=== PATIENT | female | born 1965 | race African-American/Black ===

== ENCOUNTER → 2016-04-23 | Outpatient (CLI) | payer OTHER ==
[2016-04-23 07:46] LABS: BASO # 0.1 x10^3/uL (0.0-0.2); BASO % 1 % (0-3); EOS % 2 % (0-3); HEMATOCRIT 40.8 % (36.0-47.0); HEMOGLOBIN 13.2 g/dL (12.0-15.5); LYMPH % 24 % (24-48); MEAN CORPUSCULAR HEMOGLOBIN 30 pg (25-35); MEAN CORPUSCULAR HGB CONC 32 g/dL (31-37); MEAN CORPUSCULAR VOLUME 94 fL (79-100); MONO % 13 % (0-9); NEUT % 59 % (31-73); PLATELET COUNT 215 x10^3/uL (140-400); RED BLOOD COUNT 4.37 x10^6/uL (3.50-5.40); RED CELL DISTRIBUTION WIDTH 14.2 % (11.5-14.5); WHITE BLOOD COUNT 4.3 x10^3/uL (4.0-11.0)
[2016-04-23 07:55] LABS: ALBUMIN 3.7 g/dL (3.4-5.0); ALBUMIN/GLOBULIN RATIO 0.7 (1.0-1.7); CALCIUM 9.2 mg/dL (8.5-10.1); CREATININE 0.8 mg/dL (0.6-1.0); GFR 92.6; TOTAL BILIRUBIN 0.4 mg/dL (0.2-1.0); TOTAL PROTEIN 8.8 g/dL (6.4-8.2)
[2016-04-23 08:46] LABS: CHOLESTEROL/HDL RATIO 3.2
[2016-04-23 13:23] LABS: FSH 109.1 mIU/mL (.); LUTEINIZING HORMONE 60.2 mIU/mL (.)
== END | disposition home or self-care (01) ==
LOC: LAB 07:03
PROVIDERS: ATTEND Internal Medicine
DX: N91.1 Secondary amenorrhea (principal)
CPT/HCPCS: 36415; 80053; 80061; 83001; 83002; 83036; 83690; 84443; 85027

== ENCOUNTER → 2016-04-28 | Outpatient (CLI) | payer OTHER ==
--- NOTE | 2016-04-28 14:52 | RAD ---
DATE: 04/28/2016. EXAM: DIGITAL SCREEN BILAT W/CAD HISTORY: Routine screening. COMPARISON: 04/25/2015. This study was interpreted with the benefit of Computerized Aided Detection (CAD). FINDINGS: Both breasts are heterogeneously dense, limiting the sensitivity of mammography. No dominant mass or malignant appearing microcalcifications are seen. The axillae are unremarkable. IMPRESSION: No mammographic features suspicious for malignancy. BI-RADS CATEGORY: 1 NEGATIVE RECOMMENDED FOLLOW-UP: 12M 12 MONTH FOLLOW-UP PQRS compliance statement: Patient information was entered into a reminder system with a target due date for the next mammogram. Mammography is a sensitive method for finding small breast cancers, but it does not detect them all and is not a substitute for careful clinical examination. A negative mammogram does not negate a clinically suspicious finding and should not result in delay in biopsying a clinically suspicious abnormality. "Our facility is accredited by the [employer] Mammography [employer]."
== END | disposition home or self-care (01) ==
LOC: MAMMO 14:01
PROVIDERS: ATTEND Internal Medicine
DX: Z12.31 Encounter for screening mammogram for malignant neoplasm of breast (principal)
CPT/HCPCS: G0202; 77067

== ENCOUNTER 2016-04-30 22:01 | Emergency (ER) | payer OTHER ==
[2016-04-30 22:33] VITALS: BP 135/89
[2016-04-30] MEDS ORDERED: PHEN-318 PO (22:37)
[2016-04-30] MEDS ORDERED: CIPR500T94 PO (22:37)
--- NOTE | 2016-04-30 22:37 | PHYS DOC ---
Adult General Chief Complaint Chief Complaint: PAIN ON URINATION [facility] HPI Patient is a 50 year old female who presents with dysuria that began today. Patient also states she noted blood on the toilet paper when she wiped herself. Patient denies any flank pain, denies any nausea vomiting or fever. Denies any back pain or abdominal pain. Denies any chance she is . She's had a tubal ligation. Review of Systems Review of Systems Constitutional: Denies fever or chills [] Eyes: Denies change in visual acuity, redness, or eye pain [] HENT: Denies nasal congestion or sore throat [] Respiratory: Denies cough or shortness of breath [] Cardiovascular: No additional information not addressed in HPI [] GI: Denies abdominal pain, nausea, vomiting, bloody stools or diarrhea [] : Denies dysuria or hematuria [] Musculoskeletal: Denies back pain or joint pain [] Integument: Denies rash or skin lesions [] Neurologic: Denies headache, focal weakness or sensory changes [] Endocrine: Denies polyuria or polydipsia [] Current Medications Current Medications Current Medications Medications (Trade) Dose Ordered Sig/Manda Start Time Stop Time Status Last Admin Dose Admin Ciprofloxacin (Cipro) 500 mg 1X ONCE 04/30/16 22:45 04/30/16 22:46 Phenazopyridine HCl (Pyridium) 200 mg 1X ONCE 04/30/16 22:45 04/30/16 22:46 Allergies Allergies Allergies Coded Allergies Type Severity Reaction Last Updated Verified Sulfa (Sulfonamide Antibiotics) Allergy Intermediate RASH 04/30/16 Yes Physical Exam Physical Exam Constitutional: Well developed, well nourished, no acute distress, non-toxic appearance. [] HENT: Normocephalic, atraumatic, bilateral external ears normal, oropharynx moist, no oral exudates, nose normal. [] Eyes: PERRLA, EOMI, conjunctiva normal, no discharge. [] Neck: Normal range of motion, no tenderness, supple, no stridor. [] Cardiovascular:Heart rate regular rhythm, no murmur [] Lungs & Thorax: Bilateral breath sounds clear to auscultation [] Abdomen: Bowel sounds normal, soft, no tenderness, no masses, no pulsatile masses. [] Skin: Warm, dry, no erythema, no rash. [] Back: No tenderness, no CVA tenderness. [] Extremities: No tenderness, no cyanosis, no clubbing, ROM intact, no edema. [] Neurologic: Alert and oriented X 3, normal motor function, normal sensory function, no focal deficits noted. [] Psychologic: Affect normal, judgement normal, mood normal. [] Current Patient Data Vital Signs Vital Signs Date Time Temp Pulse Resp B/P Pulse Ox O2 Delivery O2 Flow Rate FiO2 04/30/16 22:33 98.0 96 20 98 Room Air 98.0 EKG EKG [] Radiology/Procedures Radiology/Procedures [] Course & Med Decision Making Course & Med Decision Making Pertinent Labs and Imaging studies reviewed. (See chart for details) Patient is in the UTI with UTI symptoms. UA shows patient is positive for UTI. Discharged with Cipro for 7 days. Pyridium as needed for pain. Follow-up with primary care doctor in one week. Provided return precautions. Discharged in stable condition. Dragon Disclaimer Dragon Disclaimer This electronic medical record was generated, in whole or in part, using a voice recognition dictation system. Departure Departure Impression: Primary Impression: Urinary tract infection Disposition: HOME, SELF-CARE Condition: STABLE Referrals: RICARDO LEACH MD (PCP) Follow-up with your own doctor in one week Patient Instructions: Urinary Tract Infection Additional Instructions: You were seen for urinary tract infection. Please complete your antibiotics. Take the prescribed medicines for pain as needed. Come back to the emergency room if symptoms worsen. Follow-up with your own doctor in one week. Push fluids. Scripts Phenazopyridine Hcl (Pyridium)200 Mg Vittwt454 Mg PO TID #9 TAB Prov:RODRIGO APARICIO APRN 04/30/16 Ciprofloxacin Hcl (Cipro)500 Mg Tablet1 Tab PO BID #13 TAB Prov:RODRIGO APARICIO APRN 04/30/16 Problem Qualifiers Primary Impression: Urinary tract infection Urinary tract infection type: acute cystitis Hematuria presence: with hematuria Qualified Code: N30.01 - Acute cystitis with hematuria RODRIGO APARICIO APRN Apr 30, 2016 22:37
[2016-04-30] MEDS ORDERED: CIPROFLOXACIN HCL 250 MG TABLET PO ONE (22:45)
[2016-04-30] MEDS ORDERED: PHENAZOPYRIDINE 200 MG TABLET. PO ONE (22:45)
[2016-04-30 22:48] LABS: BILIRUBIN,URINE NEGATIVE (NEG); GLUCOSE,URINE NEGATIVE (NEG); NITRITE,URINE POSITIVE (NEG); UROBILINOGEN,URINE 0.2 mg/dL (0.2 mg/dL)
[2016-04-30 22:54] LABS: PROTEIN,URINE 30 mg/dL (NEG-TRACE)
[2016-04-30 22:55] LABS: BACTERIA,URINE MOD /HPF (0-FEW); RBC,URINE 20-40 /HPF (0-2); SQUAMOUS EPITHELIAL CELL,UR FEW /LPF; WBC,URINE TNTC /HPF (0-4)
== END 2016-04-30 22:45 | disposition home or self-care (01) ==
LOC: ER 22:01
DX: N39.0 Urinary tract infection, site not specified (principal); Z88.2 Allergy status to sulfonamides
CPT/HCPCS: 81001; 99283

== ENCOUNTER → 2016-06-19 | Outpatient (CLI) | payer OTHER ==
[~2016-06-19] MED LIST: CEPH-264 PO; CIPR500T94 PO; PHEN-318 PO
[2016-06-22 16:15] LABS: ALPHA 1 0.2 g/dL (0.0-0.4); ALPHA 2 0.6 g/dL (0.4-1.0); BETA 1.1 g/dL (0.7-1.3); GAMMA 2.2 g/dL (0.4-1.8); M-SPIKE Not Observed g/dL (Not Observed)
== END | disposition home or self-care (01) ==
LOC: LAB 09:34
PROVIDERS: ATTEND Internal Medicine
DX: R77.8 Other specified abnormalities of plasma proteins (principal)
CPT/HCPCS: 36415; 84165; 86703

== ENCOUNTER 2016-06-21 07:05 | Emergency (ER) | payer OTHER ==
[~2016-06-21] VITALS: Ht 160 cm; Wt 77.1 kg
[~2016-06-21 07:05] MED LIST changes: -CEPH-264 PO
[2016-06-21 07:15] VITALS: BP 129/72
[2016-06-21 07:43] LABS: BILIRUBIN,URINE NEGATIVE (NEG); GLUCOSE,URINE NEGATIVE (NEG); NITRITE,URINE POSITIVE (NEG); PROTEIN,URINE NEGATIVE (NEG-TRACE)
[2016-06-21 08:04] LABS: BACTERIA,URINE MODERATE /HPF (0-FEW); RBC,URINE 0 /HPF (0-2); SQUAMOUS EPITHELIAL CELL,UR MOD /LPF
[2016-06-21] MEDS ORDERED: CEPHALEXIN 250 MG CAPSULE PO ONE (08:15)
[2016-06-21] MEDS ORDERED: CEPH-264 PO (08:18)
--- NOTE | 2016-06-21 08:18 | PHYS DOC ---
Past Medical History Past Medical History: No Pertinent History Past Surgical History: Cholecystectomy, , Tubal ligation Additional Information: Nonsmoker Alcohol Use: None Drug Use: None Adult General Chief Complaint Chief Complaint: PAIN ON URINATION [facility] HPI Patient is a 50 year old female who presents with suprapubic pain and urinary frequency starting yesterday. She also reports urinary urgency. She denies dysuria, hematuria, fever, nausea, or vomiting. She had a UTI approximately 2 months ago treated with ciprofloxacin. Her PCP is Dr. Omer Cool. Review of Systems Review of Systems Constitutional: Denies fever or chills. [] GI: Denies nausea, vomiting, bloody stools or diarrhea. Reports suprapubic pain : Denies dysuria, hematuria. Reports urinary frequency and urgency. Musculoskeletal: Denies back pain or joint pain. [] Integument: Denies rash or skin lesions. [] Neurologic: Denies headache, focal weakness or sensory changes. [] All systems reviewed and negative unless otherwise stated in the HPI. Allergies Allergies Allergies Coded Allergies Type Severity Reaction Last Updated Verified Sulfa (Sulfonamide Antibiotics) Allergy Intermediate RASH 04/30/16 Yes Physical Exam Physical Exam Constitutional: Well developed, well nourished, no acute distress, non-toxic appearance. [] HENT: Normocephalic, atraumatic, bilateral external ears normal, oropharynx moist, no oral exudates, nose normal. [] Eyes: PERRLA, EOMI, conjunctiva normal, no discharge. [] Neck: Normal range of motion, no tenderness, supple, no stridor. [] Cardiovascular:Heart rate regular rhythm, no murmur [] Lungs & Thorax: Bilateral breath sounds clear to auscultation [] Abdomen: Bowel sounds normal, soft, suprapubic tenderness, no masses, no pulsatile masses. [] Skin: Warm, dry, no erythema, no rash. [] Back: No tenderness, no CVA tenderness. [] Extremities: No tenderness, no cyanosis, no clubbing, ROM intact, no edema. [] Neurologic: Alert and oriented X 3, normal motor function, normal sensory function, no focal deficits noted. [] Psychologic: Affect normal, judgement normal, mood normal. [] Current Patient Data Vital Signs Vital Signs Date Time Temp Pulse Resp B/P Pulse Ox O2 Delivery O2 Flow Rate FiO2 06/21/16 07:15 97.5 90 18 97 Room Air 97.5 Lab Values Laboratory Tests Test 06/21/16 07:24 Urine Collection Type Unknown Urine Color [place] Urine Clarity Clear Urine pH 5.0 Urine Specific [place] 1.020 Urine Protein Negativemg/dL (NEG-TRACE) Urine Glucose (UA) Negativemg/dL (NEG) Urine Ketones (Stick) Tracemg/dL (NEG) Urine Blood Negative (NEG) Urine Nitrite Positive (NEG) Urine Bilirubin Negative (NEG) Urine Urobilinogen Dipstick 1.0mg/dL (0.2 mg/dL) Urine Leukocyte Esterase Small (NEG) Urine RBC 0/HPF (0-2) Urine WBC 5-10/HPF (0-4) Urine Squamous Epithelial Cells Mod/LPF Urine Bacteria Moderate/HPF (0-FEW) Urine Mucus Mod/LPF EKG EKG [] Radiology/Procedures Radiology/Procedures [] Course & Med Decision Making Course & Med Decision Making Pertinent Labs and Imaging studies reviewed. (See chart for details) [] Dragon Disclaimer Dragon Disclaimer This electronic medical record was generated, in whole or in part, using a voice recognition dictation system. Departure Departure Impression: Primary Impression: Urinary tract infection Disposition: HOME, SELF-CARE Condition: STABLE Referrals: OMER COOL MD (PCP) Patient Instructions: Urinary Tract Infection, [id number] Additional Instructions: Please complete all the prescribed antibiotics, even if you're feeling better. Please follow-up with your doctor for recheck of your urine after completion of the antibiotics. Return to the emergency department if you have any new or concerning symptoms. Scripts Cephalexin (Keflex)500 Mg Capsule1 Cap PO BID #14 CAP Prov:CHUCK HODGES 06/21/16 Problem Qualifiers Primary Impression: Urinary tract infection Urinary tract infection type: acute cystitis Hematuria presence: without hematuria Qualified Code: N30.00 - Acute cystitis without hematuria CHUCK HODGES Jun 21, 2016 08:18
== END 2016-06-21 08:30 | disposition home or self-care (01) ==
LOC: ER 07:05
DX: N30.00 Acute cystitis without hematuria (principal); Z90.49 Acquired absence of other specified parts of digestive tract; Z98.51 Tubal ligation status; Z88.2 Allergy status to sulfonamides
CPT/HCPCS: 81001; 87086; 99284

== ENCOUNTER → 2016-08-03 | Outpatient (CLI) | payer OTHER ==
[~2016-08-03] MED LIST changes: +CEPH-264 PO
[2016-08-03 14:11] LABS: BASO # 0.1 x10^3/uL (0.0-0.2); BASO % 1 % (0-3); EOS % 2 % (0-3); HEMATOCRIT 40.8 % (36.0-47.0); HEMOGLOBIN 13.6 g/dL (12.0-15.5); LYMPH # 1.6 x10^3/uL (1.0-4.8); LYMPH % 31 % (24-48); MEAN CORPUSCULAR HEMOGLOBIN 31 pg (25-35); MEAN CORPUSCULAR HGB CONC 33 g/dL (31-37); MEAN CORPUSCULAR VOLUME 92 fL (79-100); MONO % 11 % (0-9); NEUT % 55 % (31-73); PLATELET COUNT 214 x10^3/uL (140-400); RED BLOOD COUNT 4.42 x10^6/uL (3.50-5.40); RED CELL DISTRIBUTION WIDTH 14.4 % (11.5-14.5); WHITE BLOOD COUNT 5.1 x10^3/uL (4.0-11.0)
[2016-08-03 14:35] LABS: ALBUMIN 3.6 g/dL (3.4-5.0); ALBUMIN/GLOBULIN RATIO 0.7 (1.0-1.7); CREATININE 0.8 mg/dL (0.6-1.0); GFR 92.6; POTASSIUM 3.5 mmol/L (3.5-5.1); TOTAL BILIRUBIN 0.3 mg/dL (0.2-1.0); TOTAL PROTEIN 8.6 g/dL (6.4-8.2)
[2016-08-06 07:32] LABS: ALPHA 1 0.2 g/dL (0.0-0.4); ALPHA 2 0.7 g/dL (0.4-1.0); BETA 1.2 g/dL (0.7-1.3); GAMMA 2.2 g/dL (0.4-1.8); M-SPIKE Not Observed g/dL (Not Observed)
[2016-08-07 10:25] LABS: IMMUNOGLOBULIN A 250 mg/dL (87-352); IMMUNOGLOBULIN G 2284 mg/dL (700-1600); IMMUNOGLOBULIN M 63 mg/dL (26-217)
== END | disposition home or self-care (01) ==
LOC: LAB 13:13
PROVIDERS: ATTEND Internal Medicine Hematology & Oncology
DX: D89.2 Hypergammaglobulinemia, unspecified (principal); R53.83 Other fatigue
CPT/HCPCS: 36415; 80053; 84165; 84443; 85027; 86334

== ENCOUNTER → 2016-08-07 | Outpatient (CLI) | payer OTHER ==
[~2016-08-07] MED LIST changes: +CONTRAST GIVEN MC PRN; +IOHEXOL 240 MG/ML 50ML VIAL. PO ONE; +IOHEXOL 300 MG/ML 75 ML VIAL IV ONE
--- NOTE | 2016-08-07 08:37 | RAD ---
Indication abnormal thyroid function tests. Grayscale imaging targeted to the thyroid was performed. No prior imaging of the thyroid is available. The right lobe measures 5 x 1.9 x 2.3 cm. The right lobe, generally, has a heterogeneous appearance. There is a hyperechoic subcentimeter, 6 mm, nodule in the right lobe. There is shadowing suggesting possible calcification associated with the nodule. The isthmus appears unremarkable. The left lobe of the thyroid has a heterogeneous appearance measuring approximately 4.6 x 1.6 x 2.3 cm. No discrete nodule is identified. IMPRESSION: 6 mm nodule in the right lobe of the thyroid.
--- NOTE | 2016-08-07 09:41 | RAD ---
Indication fatigue. Hyper gammaglobulin anemia. Axial images to the abdomen and pelvis were obtained. Both oral and IV contrast were administered. Approximately 75 cc of Omnipaque 300 was administered intravenously. No prior CT imaging of the abdomen or pelvis is available. The lung bases appear clear. The liver and spleen appear unremarkable. No adrenal or renal pathology is seen. The pancreas appears normal. There is no significant central or retroperitoneal adenopathy. A mass inflammatory process or acute finding in the abdomen is not seen. In the pelvis no focal mass or inflammatory process is seen. There is no significant adenopathy. IMPRESSION: No acute or significant finding seen in the abdomen or pelvis PQRS Compliance Statement: One or more of the following individualized dose reduction techniques were utilized for this examination: 1. Automated exposure control 2. Adjustment of the mA and/or kV according to patient size 3. Use of iterative reconstruction technique
== END | disposition home or self-care (01) ==
LOC: US 06:56
PROVIDERS: ATTEND Internal Medicine Hematology & Oncology
DX: E04.1 Nontoxic single thyroid nodule (principal); R53.83 Other fatigue; D89.2 Hypergammaglobulinemia, unspecified
CPT/HCPCS: 74177; 76536; Q9966; Q9967

== ENCOUNTER 2016-09-24 10:38 | Day surgery (SDC) | payer OTHER ==
[~2016-09-24] VITALS: Ht 160 cm; Wt 87.5 kg
[~2016-09-24 10:38] MED LIST changes: -CONTRAST GIVEN MC PRN; +FERRIC SUBSULFATE 8 ML SOL.W.APPL TP ONE; +HYDROmorphone 2 MG/ML VIAL IV PRN; -IOHEXOL 240 MG/ML 50ML VIAL. PO ONE; -IOHEXOL 300 MG/ML 75 ML VIAL IV ONE; +IV RINGERS,LACTATED 1000ML 1,000 ML IV SCH; +LIDOCAINE 1% 1 ML SYRINGE. ID PRN; +LIDOCAINE 1%/EPI 1:100,000 20 ML VIAL. ONE; +MORPHINE SULFATE 2 MG/ML DISP.SYRIN. IV PRN; +PROCHLORPERAZINE 10 MG/2 ML VIAL. IV PRN; +fentaNYL PF VIAL 100 MCG/2 ML VIAL IV PRN
[2016-09-24] MEDS ORDERED: PROPOFOL 20 ML IV ONE (11:49)
[2016-09-24] MEDS ORDERED: LIDOCAINE 2% PF Vial for OR 5 ML VIAL. ONE (11:49)
[2016-09-24] MEDS ORDERED: fentaNYL PF VIAL 100 MCG/2 ML VIAL ONE (11:50)
[2016-09-24] MEDS ORDERED: DEXAMETHASONE SOD PHOS 4 MG/ML VIAL ONE (12:04)
[2016-09-24] MEDS ORDERED: SCOPOLAMINE 1.5MG PATCH. TD SCH (12:04)
[2016-09-24] MEDS ORDERED: DEXAMETHASONE SOD PHOS 20 MG/5 ML VIAL. IV ONE (12:15)
[2016-09-24] MEDS ORDERED: ONDANSETRON PF 4 MG/2 ML VIAL. ONE (12:32)
[2016-09-24] MEDS ORDERED: SEVOFLURANE 16 TO 30 MINUTES. IH ONE (12:34)
[2016-09-24] MEDS ORDERED: FAMOTIDINE 20 MG/2 ML VIAL ONE (12:39)
[2016-09-24 12:42] LABS: NEG OBC UR NEG; POS OBC UR POS
--- NOTE | 2016-09-24 13:00 | DISCH ---
DISCHARGE INSTRUCTIONS Condition on Discharge Condition on Discharge: Stable Activity After Discharge Activity Instructions for Disc: Activity as tolerated Lifting Instructions after Dis: No heavy lifting Driving Instructions after Dis: Do not drive today Diet after Discharge Diet after Discharge: Regular Contacting the DRShukri after DC Call your doctor for: Concerns you may have Follow-Up Follow up with: Dr. Arzate in 2 weeks. NATE ARZATE Jr, MD Sep 24, 2016 13:00
--- NOTE | 2016-09-24 13:00 | PDOC ---
BRIEF OPERATIVE NOTE Pre-Op Diagnosis CRISTI 1 Post-Op Diagnosis Same Procedure Performed Cervical cone biopsy Surgeon Dr. Arzate Anesthesia Type: General Blood Loss Less than 5 ml Specimens Obtained cervical cone biopsy Findings CRISTI 1 Complications none Additional Remarks pt. NATE Heck Jr, MD Sep 24, 2016 13:00
[2016-09-24] MEDS ORDERED: OXYC-323 PO (13:27)
[2016-09-24 13:59] VITALS: BP 120/70
--- NOTE | 2016-09-24 18:30 | OP ---
DATE OF SURGERY: PREOPERATIVE DIAGNOSES: CRISTI 1. POSTOPERATIVE DIAGNOSES: CRISTI 1. PROCEDURE: Cervical cone biopsy. SURGEON: Nate Arzate MD ANESTHESIA: GETA. ESTIMATED BLOOD LOSS: 5 mL. COMPLICATIONS: None. FINDINGS: Cervical dysplasia, CRISTI 1 on colposcopic biopsy. SUMMARY: A 51-year-old female with CRISTI 1 on colposcopic biopsy requiring cervical cone biopsy. She was counseled on risks, benefits and expectations and voiced a clear understanding to proceed. DESCRIPTION OF PROCEDURE: The patient was taken to surgery suite and placed in dorsal lithotomy position. She was prepped with Betadine solution and draped in sterile fashion. After adequate anesthesia, weighted speculum and curved Joni placed vaginally and anterior lip of the cervix grasped with a single tooth tenaculum. 1% lidocaine with epinephrine was injected circumferentially around the cervix. ____ 2-0 Vicryl sutures placed at the 3 o'clock and 9 o'clock position for better stabilization cervix. Cervix cone biopsy was performed with the 45-degree blade removing the ____ portion of the anterior and posterior lip of the cervix. The remaining cervical canal was cauterized with Bovie cautery. Monsel solution was also applied for better hemostasis. The single tooth tenaculum, weighted speculum and curved Joni were removed. The patient tolerated the procedure well and was taken to recovery room in stable condition. Sponge and needle count correct x 3. NATE ARZATE MD DR: ROSITA/rosy JOB#: [id number] / [id number]
== END 2016-09-24 14:30 | disposition home or self-care (01) ==
LOC: SURG 10:38
PROVIDERS: ATTEND Obstetrics & Gynecology
DX: N87.0 Mild cervical dysplasia (principal); E78.00 Pure hypercholesterolemia, unspecified; E66.9 Obesity, unspecified; Z90.49 Acquired absence of other specified parts of digestive tract; Z98.51 Tubal ligation status; Z68.42 Body mass index [BMI] 45.0-49.9, adult; Z86.39 Personal history of other endocrine, nutritional and metabolic disease; Z72.89 Other problems related to lifestyle; Z88.2 Allergy status to sulfonamides
CPT/HCPCS: 57500; 81025; J0690; J1100; J2405; J2704; J3010; J3490; S0028

== ENCOUNTER → 2016-11-06 | Outpatient (CLI) | payer OTHER ==
[~2016-11-06] MED LIST changes: -FERRIC SUBSULFATE 8 ML SOL.W.APPL TP ONE; -HYDROmorphone 2 MG/ML VIAL IV PRN; -IV RINGERS,LACTATED 1000ML 1,000 ML IV SCH; -LIDOCAINE 1% 1 ML SYRINGE. ID PRN; -LIDOCAINE 1%/EPI 1:100,000 20 ML VIAL. ONE; -MORPHINE SULFATE 2 MG/ML DISP.SYRIN. IV PRN; +OXYC-323 PO; -PROCHLORPERAZINE 10 MG/2 ML VIAL. IV PRN; -fentaNYL PF VIAL 100 MCG/2 ML VIAL IV PRN
[2016-11-06 14:52] LABS: FREE T4 1.01 ng/dL (0.76-1.46)
== END | disposition home or self-care (01) ==
LOC: LAB 13:49
PROVIDERS: ATTEND Internal Medicine Endocrinology, Diabetes & Metabolism
DX: E04.1 Nontoxic single thyroid nodule (principal); R94.6 Abnormal results of thyroid function studies
CPT/HCPCS: 36415; 84439; 84443; 86376

== ENCOUNTER → 2017-01-07 | Outpatient (CLI) | payer OTHER ==
[2017-01-07 11:13] LABS: FREE T4 1.18 ng/dL (0.76-1.46)
== END | disposition home or self-care (01) ==
LOC: LAB 09:52
PROVIDERS: ATTEND Internal Medicine Endocrinology, Diabetes & Metabolism
DX: R94.6 Abnormal results of thyroid function studies (principal)
CPT/HCPCS: 36415; 84439; 84443

== ENCOUNTER → 2017-04-01 | Outpatient (CLI) | payer OTHER | END | disposition home or self-care (01) | LOC: US 13:00 | DX: E04.1 Nontoxic single thyroid nodule (principal) | CPT/HCPCS: 76536 ==

== ENCOUNTER → 2017-04-23 | Outpatient (CLI) | payer OTHER ==
[2017-04-23 07:15] LABS: ADD MAN DIFF? NO
[2017-04-23 07:41] LABS: BASO % 1 % (0-3); EOS # 0.1 x10^3/uL (0.0-0.7); EOS % 2 % (0-3); HEMATOCRIT 40.4 % (36.0-47.0); HEMOGLOBIN 13.3 g/dL (12.0-15.5); LYMPH # 1.1 x10^3/uL (1.0-4.8); LYMPH % 26 % (24-48); MEAN CORPUSCULAR HEMOGLOBIN 31 pg (25-35); MEAN CORPUSCULAR HGB CONC 33 g/dL (31-37); MEAN CORPUSCULAR VOLUME 94 fL (79-100); MONO # 0.6 x10^3/uL (0.0-1.1); MONO % 14 % (0-9); NEUT # 2.4 x10^3uL (1.8-7.7); NEUT % 57 % (31-73); PLATELET COUNT 223 x10^3/uL (140-400); RED BLOOD COUNT 4.32 x10^6/uL (3.50-5.40); RED CELL DISTRIBUTION WIDTH 14.1 % (11.5-14.5); WHITE BLOOD COUNT 4.3 x10^3/uL (4.0-11.0)
[2017-04-23 07:59] LABS: ALBUMIN 3.7 g/dL (3.4-5.0); ALBUMIN/GLOBULIN RATIO 0.8 (1.0-1.7); ALK PHOS 111 U/L (46-116); ALT (SGPT) 25 U/L (14-59); ANION GAP 9 (6-14); AST (SGOT) 17 U/L (15-37); BLOOD UREA NITROGEN 9 mg/dL (7-20); BUN/CREATININE RATIO 13 (6-20); CALCIUM 9.2 mg/dL (8.5-10.1); CARBON DIOXIDE 29 mmol/L (21-32); CHLORIDE 104 mmol/L (98-107); CHOLESTEROL 211 mg/dL (0-200); CHOLESTEROL/HDL RATIO 3.7; CREATININE 0.7 mg/dL (0.6-1.0); GFR 107.6; GLUCOSE 90 mg/dL (70-99); HDLC 57 mg/dL (40-60); LDLC 145 mg/dL (0-100); NON-HDL CHOLESTEROL 154 mg/dL (0-129); POTASSIUM 4.2 mmol/L (3.5-5.1); SODIUM 142 mmol/L (136-145); TOTAL BILIRUBIN 0.3 mg/dL (0.2-1.0); TOTAL PROTEIN 8.6 g/dL (6.4-8.2); TRIGLYCERIDES 47 mg/dL (0-150); VLDLC 9 mg/dL (0-40)
[2017-04-23 08:07] LABS: THYROID STIM HORMONE (TSH) 2.132 uIU/mL (0.358-3.74)
[2017-04-23 08:07] LABS: FREE T4 1.05 ng/dL (0.76-1.46)
== END | disposition home or self-care (01) ==
LOC: LAB 06:17
DX: Z13.220 Encounter for screening for lipoid disorders (principal); E04.1 Nontoxic single thyroid nodule; R77.9 Abnormality of plasma protein, unspecified
CPT/HCPCS: 36415; 80053; 80061; 84439; 84443; 85025

== ENCOUNTER → 2017-04-30 | Outpatient (CLI) | payer OTHER | END | disposition home or self-care (01) | LOC: MAMMO 08:36 | DX: Z12.31 Encounter for screening mammogram for malignant neoplasm of breast (principal) | CPT/HCPCS: 77067 ==

== ENCOUNTER → 2017-05-25 | Outpatient (CLI) | payer OTHER ==
[2017-05-26 01:15] LABS: HIV ANTIBODY Non Reactive (Non Reactive)
[2017-05-26 01:15] LABS: HCV ANTIBODY 0.2 s/co ratio (0.0-0.9)
[2017-05-26 03:15] LABS: RPR Non Reactive (Non Reactive)
== END | disposition home or self-care (01) ==
LOC: LAB 10:32
DX: Z77.21 Contact with and (suspected) exposure to potentially hazardous body fluids (principal)
CPT/HCPCS: 36415; 86593; 86703; 86803

== ENCOUNTER 2017-09-25 17:52 | Emergency (ER) | payer OTHER | END 2017-09-25 19:12 | disposition home or self-care (01) | LOC: ER 19:12 | DX: E03.9 Hypothyroidism, unspecified (principal); R59.1 Generalized enlarged lymph nodes; Z88.2 Allergy status to sulfonamides | CPT/HCPCS: 99283 ==

== ENCOUNTER → 2017-09-30 | Outpatient (CLI) | payer OTHER ==
[2017-09-30 12:35] LABS: FREE T4 1.11 ng/dL (0.76-1.46)
== END | disposition home or self-care (01) ==
LOC: LAB 09:50
DX: E04.9 Nontoxic goiter, unspecified (principal); E78.00 Pure hypercholesterolemia, unspecified
CPT/HCPCS: 36415; 84439; 84443

== ENCOUNTER → 2017-12-13 | Outpatient (CLI) | payer OTHER ==
[2017-09-29 08:16] VITALS: BP 111/74
[~2017-12-13] MED LIST changes: +AMOX875T PO; +PRED50TA PO
[2017-12-13 09:47] LABS: FREE T4 0.97 ng/dL (0.76-1.46); THYROID STIM HORMONE (TSH) 3.528 uIU/mL (0.358-3.74)
== END | disposition home or self-care (01) ==
LOC: LAB 06:54
PROVIDERS: ATTEND Family Medicine
DX: E04.9 Nontoxic goiter, unspecified (principal)
CPT/HCPCS: 36415; 84439; 84443; 86800

== ENCOUNTER → 2018-05-02 | Outpatient (CLI) | payer OTHER ==
[2017-09-29 08:16] VITALS: BP 111/74
[~2018-05-02] MED LIST changes: -OXYC-323 PO; +OXYC1TAB15 PO
--- NOTE | 2018-05-03 15:56 | RAD ---
DATE: 05/02/2018 EXAM: MAMMO ANTONI SCREENING BILATERAL HISTORY: Screening Mammogram COMPARISON: 04/30/2017, 04/28/2016, 04/26/2015 This study was interpreted with the benefit of Computerized Aided Detection (CAD). The breast parenchyma shows scattered fibroglandular densities. Breast parenchyma level B. FINDINGS: Bilateral digital 2-D and 3-D tomosynthesis CC and MLO views. Possible architectural distortion in the lateral left breast, posterior depth. No suspicious mass, calcification or architectural distortion in the right breast. IMPRESSION: Possible architectural distortion in the lateral left breast. Spot compression CC view, and possible ultrasound, is recommended for further evaluation. BI-RADS CATEGORY: 0 INCOMPLETE: NEEDS ADDITIONAL IMAGING EVALUATION AND/OR PRIOR MAMMOGRAMS FOR COMPARISON. RECOMMENDED FOLLOW-UP: ADD ADDITIONAL IMAGING PQRS compliance statement: Patient information was entered into a reminder system with a target due date for the next mammogram. Mammography is a sensitive method for finding small breast cancers, but it does not detect them all and is not a substitute for careful clinical examination. A negative mammogram does not negate a clinically suspicious finding and should not result in delay in biopsying a clinically suspicious abnormality. "Our facility is accredited by the [employer] Mammography Program."
== END | disposition home or self-care (01) ==
LOC: MAMMO 07:41
PROVIDERS: ATTEND Physician Assistant Medical
DX: Z12.31 Encounter for screening mammogram for malignant neoplasm of breast (principal)
CPT/HCPCS: 77063; 77067

== ENCOUNTER → 2018-05-04 | Outpatient (CLI) | payer OTHER ==
[2017-09-29 08:16] VITALS: BP 111/74
--- NOTE | 2018-05-04 13:49 | RAD ---
DATE: 05/04/2018 EXAM: DIGITAL DIAGNOSTIC LT HISTORY: Asymmetry in the lateral left breast COMPARISON: Screening mammogram 05/02/2018, 04/30/2017 Findings: Periprosthetic identified in the cephalic Digital 2-D spot compression left breast CC view and full field digital 2-D MLO view. The previously noted asymmetry is no longer visualized on the spot compression view and is consistent with mission artifact. IMPRESSION: Asymmetry the in the left breast is consistent with summation artifact. Patient will return to screening mammogram with a target date of April 2019. BI-RADS CATEGORY: 1 NEGATIVE RECOMMENDED FOLLOW-UP: 12M 12 MONTH FOLLOW-UP PQRS compliance statement: Patient information was entered into a reminder system with a target due date for the next mammogram. Mammography is a sensitive method for finding small breast cancers, but it does not detect them all and is not a substitute for careful clinical examination. A negative mammogram does not negate a clinically suspicious finding and should not result in delay in biopsying a clinically suspicious abnormality. "Our facility is accredited by the [employer] Mammography [employer]."
== END | disposition home or self-care (01) ==
LOC: MAMMO 13:15
PROVIDERS: ATTEND Physician Assistant Medical
DX: R92.8 Other abnormal and inconclusive findings on diagnostic imaging of breast (principal)
CPT/HCPCS: 77065

== ENCOUNTER → 2018-05-19 | Outpatient (CLI) | payer OTHER ==
[2017-09-29 08:16] VITALS: BP 111/74
[2018-05-19 08:00] LABS: BASO % 1 % (0-3); EOS # 0.1 x10^3/uL (0.0-0.7); EOS % 2 % (0-3); HEMATOCRIT 38.9 % (36.0-47.0); LYMPH % 24 % (24-48); MEAN CORPUSCULAR HEMOGLOBIN 31 pg (25-35); MEAN CORPUSCULAR HGB CONC 34 g/dL (31-37); MEAN CORPUSCULAR VOLUME 93 fL (79-100); MONO # 0.4 x10^3/uL (0.0-1.1); MONO % 10 % (0-9); NEUT # 2.5 x10^3uL (1.8-7.7); NEUT % 63 % (31-73); PLATELET COUNT 231 x10^3/uL (140-400); RED CELL DISTRIBUTION WIDTH 14.4 % (11.5-14.5)
[2018-05-19 08:05] LABS: ALBUMIN 3.7 g/dL (3.4-5.0); ALBUMIN/GLOBULIN RATIO 0.7 (1.0-1.7); CALCIUM 9.4 mg/dL (8.5-10.1); CREATININE 0.8 mg/dL (0.6-1.0); GFR 91.9; POTASSIUM 3.7 mmol/L (3.5-5.1); TOTAL BILIRUBIN 0.4 mg/dL (0.2-1.0); TOTAL PROTEIN 8.7 g/dL (6.4-8.2)
[2018-05-19 08:09] LABS: CHOLESTEROL/HDL RATIO 3.7
[2018-05-19 08:12] LABS: THYROID STIM HORMONE (TSH) 2.75 uIU/mL (0.358-3.74)
== END | disposition home or self-care (01) ==
LOC: LAB 05-17 12:56
PROVIDERS: ATTEND Physician Assistant Medical
DX: Z13.220 Encounter for screening for lipoid disorders (principal); E04.1 Nontoxic single thyroid nodule; R77.9 Abnormality of plasma protein, unspecified
CPT/HCPCS: 36415; 80053; 80061; 84439; 84443; 85025

== ENCOUNTER → 2018-06-15 | Outpatient (CLI) | payer OTHER ==
[2017-09-29 08:16] VITALS: BP 111/74
--- NOTE | 2018-06-15 14:49 | RAD ---
Thyroid ultrasound, 06/15/2018: History: Follow-up thyroid nodule The right lobe of the gland measures 4.9 x 1.9 x 1.6 cm while the left lobe of the gland measures 4.8 x 1.9 x 1.4 cm. The thyroid echo pattern is heterogeneous. There is a 6 mm smooth septated cyst in the lower pole of the left lobe of the gland. This was not only 04/01/2017 exam. There is a complex nodule in the lower pole of the right lobe of the gland which measures 8 mm in greatest dimension. It appears to have a cystic component as well as echogenic internal components with probable shadowing. This suggests partial calcification or calcific debris within a complicated cyst. It is wider than tall. No internal color flow is seen. It measured 6 x 4 x 7 mm on the 08/07/2017 exam compared to measurements of 8 x 6 x 8 mm on the current exam. It therefore appears to have increased slightly in size. IMPRESSION: 1. Slight interval increase in size of the small complex right thyroid nodule. 2. Small septated cyst in the left thyroid lobe. 3. Further sonographic surveillance is suggested.
== END | disposition home or self-care (01) ==
LOC: US 12:50
PROVIDERS: ATTEND Physician Assistant Medical
DX: E04.2 Nontoxic multinodular goiter (principal)
CPT/HCPCS: 76536

== ENCOUNTER → 2018-12-01 | Outpatient (CLI) | payer OTHER ==
[2017-09-29 08:16] VITALS: BP 111/74
[2018-12-01 08:56] LABS: BASO % 1 % (0-3); EOS # 0.1 x10^3/uL (0.0-0.7); EOS % 3 % (0-3); HEMOGLOBIN 13.4 g/dL (12.0-15.5); LYMPH # 1.2 x10^3/uL (1.0-4.8); LYMPH % 30 % (24-48); MEAN CORPUSCULAR HEMOGLOBIN 31 pg (25-35); MEAN CORPUSCULAR HGB CONC 34 g/dL (31-37); MEAN CORPUSCULAR VOLUME 91 fL (79-100); MONO # 0.5 x10^3/uL (0.0-1.1); MONO % 14 % (0-9); NEUT # 2.1 x10^3/uL (1.8-7.7); NEUT % 52 % (31-73); PLATELET COUNT 227 x10^3/uL (140-400); WHITE BLOOD COUNT 3.9 x10^3/uL (4.0-11.0)
[2018-12-01 09:07] LABS: ALBUMIN 3.7 g/dL (3.4-5.0); ALBUMIN/GLOBULIN RATIO 0.7 (1.0-1.7); CALCIUM 9.5 mg/dL (8.5-10.1); CREATININE 0.8 mg/dL (0.6-1.0); GFR 91.5; TOTAL BILIRUBIN 0.4 mg/dL (0.2-1.0); TOTAL PROTEIN 8.7 g/dL (6.4-8.2)
[2018-12-01 09:19] LABS: FREE T4 0.99 ng/dL (0.76-1.46); THYROID STIM HORMONE (TSH) 2.708 uIU/mL (0.358-3.74)
== END | disposition home or self-care (01) ==
LOC: LAB 08:08
PROVIDERS: ATTEND Physician Assistant Medical
DX: R77.9 Abnormality of plasma protein, unspecified (principal); E04.1 Nontoxic single thyroid nodule
CPT/HCPCS: 36415; 80053; 84439; 84443; 85025

== ENCOUNTER → 2018-12-21 | Outpatient (CLI) | payer OTHER ==
[2017-09-29 08:16] VITALS: BP 111/74
--- NOTE | 2018-12-22 09:26 | RAD ---
Examination: Ultrasound thyroid HISTORY: History of follow-up thyroid nodules. COMPARISON: 04/01/2017 FINDINGS: The right lobe of thyroid gland measures 4.9 x 1.8 x 1.4 cm. Left lobe of thyroid gland measures 4.6 x 2.0 x 1.3 cm. Mild heterogeneous appearance of the thyroid gland. Cystic thyroid nodules identified in the right and left lobes of thyroid gland measuring 1 cm on the right and 7 mm in the left lower thyroid gland containing echogenicity within could be cystic thyroid nodules or colloid cysts similar to prior exam. IMPRESSION: 1. Unchanged cystic thyroid nodules or colloid cysts. 2. Heterogeneous appearance of thyroid gland. Correlate for thyroiditis. Electronically signed by: Pratik Magallanes MD (12/22/2018 9:23 AM) [place] [id number]
== END | disposition home or self-care (01) ==
LOC: US 15:21
PROVIDERS: ATTEND Physician Assistant Medical
DX: E04.2 Nontoxic multinodular goiter (principal)
CPT/HCPCS: 76536

== ENCOUNTER → 2019-02-14 | Outpatient (CLI) | payer OTHER ==
[2017-09-29 08:16] VITALS: BP 111/74
[2019-02-14 07:55] LABS: CHOLESTEROL/HDL RATIO 3.7
== END | disposition home or self-care (01) ==
LOC: LAB 06:46
PROVIDERS: ATTEND Obstetrics & Gynecology
DX: Z01.419 Encounter for gynecological examination (general) (routine) without abnormal findings (principal); N76.0 Acute vaginitis; B96.89 Other specified bacterial agents as the cause of diseases classified elsewhere
CPT/HCPCS: 36415; 80061

== ENCOUNTER → 2019-05-16 | Outpatient (CLI) | payer OTHER ==
[2017-09-29 08:16] VITALS: BP 111/74
--- NOTE | 2019-05-16 15:16 | RAD ---
DATE: May 16, 2019 EXAM: MAMMO ANTONI SCREENING BILATERAL HISTORY: Screening study. COMPARISON: 2017 and 2018 This study was interpreted with the benefit of Computerized Aided Detection (CAD). 2-D digital mammographic views of both breasts were performed in the CC and MLO projections. 3-D digital tomosynthesis images of both breasts were performed in the CC and MLO projections and reviewed on a computer workstation. FINDINGS: Breast Density: HETERO The breast parenchyma is heterogenously dense, which could reduce sensitivity of mammography. Breast parenchyma level C.. There are no dominant suspicious masses, suspicious microcalcifications or evidence of architectural distortion. Lymph node within the upper outer quadrant of the left breast is stable. IMPRESSION: No mammographic indicators for malignancy. BI-RADS CATEGORY: 2 BENIGN FINDING RECOMMENDED FOLLOW-UP: 12M 12 MONTH FOLLOW-UP PQRS compliance statement: Patient information was entered into a reminder system with a target due date May 17, 2020 for the next mammogram. Mammography is a sensitive method for finding small breast cancers, but it does not detect them all and is not a substitute for careful clinical examination. A negative mammogram does not negate a clinically suspicious finding and should not result in delay in biopsying a clinically suspicious abnormality. "Our facility is accredited by the [employer] Mammography Program." The patient's breast density may affect the ability of mammography to detect breast cancer. There are 4 categories of breast density, A, B, C and D. Breast density A means that most of the breast tissue is replaced with adipose tissue and therefore is not dense. Breast density B means that the breast tissue is mildly dense and scattered. Breast density C means that the breast tissue is heterogeneously dense. Breast density D means that the breast tissue is very dense. Breast densities especially C and D may decrease the sensitivity of mammography to detect breast cancer. Therefore, the patient may benefit from 3-D breast mammography (3D breast tomography) as a part of their screening mammogram. Insurance may or may not pay for this additional imaging. The patient's breast density based on today's mammogram is category C.
== END | disposition home or self-care (01) ==
LOC: MAMMO 15:18
PROVIDERS: ATTEND Physician Assistant Medical
DX: Z12.31 Encounter for screening mammogram for malignant neoplasm of breast (principal); N64.89 Other specified disorders of breast
CPT/HCPCS: 77063; 77067

== ENCOUNTER 2019-11-27 07:57 | Emergency (ER) | payer OTHER ==
[~2019-11-27] VITALS: Ht 160 cm; Wt 88.3 kg
--- NOTE | 2019-11-27 08:39 | PHYS DOC ---
Past Medical History Past Medical History: Hypothyroid Past Surgical History: Cholecystectomy, , Tubal ligation Smoking Status: Never Smoker Alcohol Use: None Drug Use: None General Adult EDM: Chief Complaint: LOWER EXTREMITY SWELLING HPI: HPI: 54-year-old female who denies any significant past medical history (takes no prescribed medications), presents to the ED with complaints of left posterior calf cramping for the past week. Patient states she did start exercising and doing lots of squats in the past month. 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 Was recently on Flagyl for yeast infection but denies any antibiotics or fluoroquinolone use. Is postmenopausal. No history of DVTs, PEs, long car rides/flights, no recent surgeries, traumas or hospitalizations. Review of systems: Denies associated fever, chills, cough, sore throat, dyspnea, chest pain, hemoptysis, abdominal pain, nausea, vomiting, diarrhea, back pain, rash, dysuria, hematuria, headache, neck stiffness, radiculopathy, sensory or motor deficits. pmd-Teodora Clay Allergies: Allergies: Allergies Coded Allergies Type Severity Reaction Last Updated Verified Sulfa (Sulfonamide Antibiotics) Allergy Intermediate RASH 09/29/17 Yes Physical Exam: PE: Constitutional: Well developed, well nourished, no acute distress, non-toxic appearance. [] HENT: Normocephalic, atraumatic, bilateral external ears normal, Eyes: EOMI, conjunctiva normal, no discharge. [] Neck: Normal range of motion, no tenderness, supple, no stridor. [] Cardiovascular:Heart rate regular rhythm, no murmur [] Lungs & Thorax: Bilateral breath sounds clear to auscultation [] Abdomen: Bowel sounds normal, soft, no tenderness, no masses, no pulsatile masses. [] Skin: Warm, dry, no erythema, no rash. [] Back: No tenderness, no CVA tenderness. [] Extremities: +left posterior calve ttp, no bruising, no cyanosis, no clubbing, ROM intact, no edema, equal PT pulses Neurologic: Alert and oriented X 3, normal motor function, normal sensory function, no focal deficits noted. [] Psychologic: Affect normal, judgement normal, mood normal. [] Current Patient Data: Vital Signs: Vital Signs Date Time Temp Pulse Resp B/P (MAP) Pulse Ox O2 Delivery O2 Flow Rate FiO2 11/27/19 08:16 97.6 80 16 144/75 (98) 99 Room Air 97.6 EKG: EKG: [] Radiology/Procedures: Radiology/Procedures: []IMAGING REPORT Signed PATIENT: JAIME ARCE EACCOUNT: [id number] : 1965 LOCATION: ER AGE: 54 SEX: F EXAM STATUS: REG ER ORD. PHYSICIAN: FELICITAS INGRAM DO REASON: left leg cramps PROCEDURE: VENOUS LOWER EXTREMITY LEFT INDICATION: Reason: left leg cramps / Spl. Instructions: / History: COMPARISON: None TECHNIQUE: Grayscale, color and doppler ultrasound images were obtained of the left lower extremity venous vasculature. LEFT: No thrombus identified in the common femoral vein, femoral vein, popliteal vein or visualized calf veins. IMPRESSION: * No thrombus identified in deep venous system of the left lower extremity. Electronically signed by: Lois Orantes MD (11/27/2019 8:45 AM) [id number] DICTATED and SIGNED BY: LOIS ORANTES MD DATE: 11/27/19 0845 Course & Med Decision Making: Course & Med Decision Making Pertinent Labs and Imaging studies reviewed. (See chart for details) Concern for acute left lower extremity cramping, likely exercise related. Left lower extremity ultrasound shows no evidence of a DVT. Labs show no electrolyte abnormality. May need repeat ultrasound in 1 week if symptoms still persist- may benefit from thyroid testing (pmd took her off the medication). Patient with no active chest pain or difficulties breathing. Will DC home with conservative management. Strict ED return cautions were given for worsening pain, neurologic deficits, chest pain or difficulties breathing. Encouraged urgent outpatient follow-up with PMD. Life-threatening processes were c onsidered but are low suspicion at this time, given history and physical exam. Pt was educated on all prescription medications and adverse effects. All patient's questions were answered and pt was stable at time of discharge. Differential includes fracture, dislocation, laceration, osteomyelitis, compartment syndrome, neurovascular injury or deficit, infection (abscess, cellulitis, septic arthritis), tendon or ligament injury. I spoken with the patient and her caregivers. I explained the patient's condi tion, diagnoses and treatment plan based on the information available to me at this time. I have answered the patient and her caregiver's questions and addressed any concerns. The patient and her caregivers have a good understanding of patient's diagnosis, condition and treatment plan as can be expected at this point. Vital signs have been stable. Patient's condition is stable and appropriate for discharge from the emergency department. Patient will pursue further outpatient evaluation with primary care physician or other designated or consulting physician as outlined in the discharge instructions. The patient and/or caregivers are agreeable to this plan of care and follow-up instructions have been explained in detail. The patient and/or caregivers have received these instructions in written form and have expressed an understanding of the discharge instructions. The patient and/or caregivers are aware that any significant change of condition or worsening of symptoms should prompt immediate return to this or the closest emergency department or call to 911. Pancho Disclaimer: Pancho Disclaimer: This electronic medical record was generated, in whole or in part, using a voice recognition dictation system. Departure Departure Impression: Primary Impression: Cramps of left lower extremity Disposition: 01 HOME, SELF-CARE Condition: STABLE Referrals: TEODORA JIMENEZ PA-C (PCP) Patient Instructions: Muscle Cramps Justicifation of Admission Dx: Justifications for Admission: Justification of Admission Dx: N/A FELICITAS INGRAM DO Nov 27, 2019 08:39
--- NOTE | 2019-11-27 08:48 | RAD ---
INDICATION: Reason: left leg cramps / Spl. Instructions: / History: COMPARISON: None TECHNIQUE: Grayscale, color and doppler ultrasound images were obtained of the left lower extremity venous vasculature. LEFT: No thrombus identified in the common femoral vein, femoral vein, popliteal vein or visualized calf veins. IMPRESSION: * No thrombus identified in deep venous system of the left lower extremity. Electronically signed by: Jamie Cole MD (11/27/2019 8:45 AM) [id number]
[2019-11-27 09:13] LABS: BASO # 0.1 x10^3/uL (0.0-0.2); BASO % 1 % (0-3); EOS # 0.1 x10^3/uL (0.0-0.7); EOS % 3 % (0-3); HEMATOCRIT 38.3 % (36.0-47.0); LYMPH # 1.2 x10^3/uL (1.0-4.8); LYMPH % 26 % (24-48); MEAN CORPUSCULAR HEMOGLOBIN 32 pg (25-35); MEAN CORPUSCULAR HGB CONC 34 g/dL (31-37); MEAN CORPUSCULAR VOLUME 92 fL (79-100); MONO # 0.5 x10^3/uL (0.0-1.1); MONO % 10 % (0-9); NEUT # 2.9 x10^3/uL (1.8-7.7); NEUT % 60 % (31-73); PLATELET COUNT 232 x10^3/uL (140-400); RED BLOOD COUNT 4.15 x10^6/uL (3.50-5.40); RED CELL DISTRIBUTION WIDTH 14.5 % (11.5-14.5); WHITE BLOOD COUNT 4.8 x10^3/uL (4.0-11.0)
[2019-11-27 09:23] LABS: CALCIUM 8.9 mg/dL (8.5-10.1); CREATININE 0.8 mg/dL (0.6-1.0); GFR 91.1; POTASSIUM 3.6 mmol/L (3.5-5.1)
[2019-11-27 09:30] VITALS: BP 118/69
== END 2019-11-27 10:11 | disposition home or self-care (01) ==
LOC: ER 07:57
DX: M79.662 Pain in left lower leg (principal); R25.2 Cramp and spasm; E03.9 Hypothyroidism, unspecified; Z90.49 Acquired absence of other specified parts of digestive tract; Z98.51 Tubal ligation status; Z98.890 Other specified postprocedural states; Z88.2 Allergy status to sulfonamides
CPT/HCPCS: 36415; 80048; 85025; 93971; 99284

== ENCOUNTER → 2020-01-10 | Outpatient (CLI) | payer OTHER | LOC: LAB 06:11 | PROVIDERS: ATTEND Physician Assistant Medical | DX: E04.9 Nontoxic goiter, unspecified (principal) | CPT/HCPCS: 36415; 84443 ==

== ENCOUNTER 2020-05-08 08:30 | Emergency (ER) | payer OTHER ==
[~2020-05-08] VITALS: Ht 160 cm; Wt 84.0 kg
[2020-05-08 08:40] VITALS: BP 128/76
[2020-05-08 09:04] LABS: BILIRUBIN,URINE NEGATIVE (NEG); CLARITY,URINE CLEAR; COLOR,URINE YELLOW; NITRITE,URINE NEGATIVE (NEG); PH,URINE 5.5 (<5.0-8.0); PROTEIN,URINE NEGATIVE (NEG-TRACE); UROBILINOGEN,URINE 0.2 mg/dL (0.2 mg/dL)
[2020-05-08 09:19] LABS: BACTERIA,URINE MOD /HPF (0-FEW); RBC,URINE 0 /HPF (0-2)
[2020-05-08] MEDS ORDERED: KETOROLAC 60 MG/2 ML VIAL. IM ONE (09:30)
[2020-05-08] MEDS ORDERED: CEPHALEXIN 250 MG CAPSULE. PO SCH (09:30)
[2020-05-08] MEDS ORDERED: PHENAZOPYRIDINE 200 MG TABLET. PO ONE (09:30)
[2020-05-08] MEDS ORDERED: CEPH500C PO (09:31)
--- NOTE | 2020-05-08 09:32 | ED.ADGEN ---
Past Medical History Past Medical History: Hypothyroid Past Surgical History: Cholecystectomy, , Tubal ligation Smoking Status: Never Smoker Alcohol Use: None Drug Use: None General Adult EDM: Chief Complaint: PAIN ON URINATION HPI: HPI: Patient is a 54-year-old female presents to the emergency room complaining of suprapubic abdominal pain that started 3 days ago. Patient has associated dysuria and urinary frequency. Her urinary frequency started today. She states the pain feels like an achy burning pain in her suprapubic area. She has had UTIs before and thought that this might be the cause. She denies any nausea, vomiting, fever, chills, sweats, vaginal discharge, vaginal bleeding, STD concerns. Review of Systems: Review of Systems: Complete ROS is negative unless otherwise documented in HPI Allergies: Allergies: Allergies Coded Allergies Type Severity Reaction Last Updated Verified Sulfa (Sulfonamide Antibiotics) Allergy Intermediate RASH 09/29/17 Yes Physical Exam: PE: General: Awake, alert, NAD. Well Nourished, well hydrated. Cooperative HEENT: Atraumatic, EOMI, PERRL, airway patent, moist oral mucosa Neck: Supple, trachea midline Respiratory: CTA bilaterally, normal effort, no wheezing/crackles CV: RRR, no murmur, cap refill <2 GI: Soft, nondistended, nontender, no masses MSK: No obvious deformities Skin: Warm, dry, intact Neuro: A&O x3, speech NL, sensory and motor grossly intact, no focal deficits Psych: Normal affect, normal mood, not suicidal or homicidal Current Patient Data: Labs: Laboratory Tests Test 05/08/20 08:33 Urine Collection Type Unknown Urine Color Yellow Urine Clarity Clear Urine pH 5.5 (<5.0-8.0) Urine Specific [place] 1.025 (1.000-1.030) Urine Protein Negative mg/dL (NEG-TRACE) Urine Glucose (UA) Negative mg/dL (NEG) Urine Ketones (Stick) Negative mg/dL (NEG) Urine Blood Negative (NEG) Urine Nitrite Negative (NEG) Urine Bilirubin Negative (NEG) Urine Urobilinogen Dipstick 0.2 mg/dL (0.2 mg/dL) Urine Leukocyte Esterase Negative (NEG) Urine RBC 0 /HPF (0-2) Urine WBC 1-4 /HPF (0-4) Urine Squamous Epithelial Cells Mod /LPF Urine Bacteria Mod /HPF (0-FEW) Urine Mucus Marked /LPF Vital Signs: Vital Signs Date Time Temp Pulse Resp B/P (MAP) Pulse Ox O2 Delivery O2 Flow Rate FiO2 05/08/20 08:40 98.0 79 16 128/76 (93) 98 Room Air 98.0 EKG: EKG: [] Heart Score: Risk Factors: Risk Factors: DM, Current or recent (<one month) smoker, HTN, HLP, family history of CAD, obesity. Risk Scores: Score 0 - 3: 2.5% MACE over next 6 weeks - Discharge Home Score 4 - 6: 20.3% MACE over next 6 weeks - Admit for Clinical Observation Score 7 - 10: 72.7% MACE over next 6 weeks - Early Invasive Strategies Radiology/Procedures: Radiology/Procedures: [] Course & Med Decision Making: Course & Med Decision Making Pertinent Labs and Imaging studies reviewed. (See chart for details) Patient is 54-year-old female presents to the emergency room with urinary symptoms. UA does show some bacteria and white blood cells. Patient will be started on Keflex. Patient's test results and vitals while in the ED were fully reviewed and discussed with the patient. Patient is stable and at this time does not need admission to the hospital. We have discussed strict return precautions and the importance of following up with their Primary Care Physician. Patient stated understanding and was given an opportunity to ask any questions. Patient is in agreement with plan. Dragon Disclaimer: Dragrenata Disclaimer: This electronic medical record was generated, in whole or in part, using a voice recognition dictation system. Departure Departure Impression: Primary Impression: Urinary tract infection Disposition: 01 DC HOME SELF CARE/HOMELESS Condition: STABLE Referrals: TEODORA JIMENEZ PA-C (PCP) Patient Instructions: Urinary Tract Infection Scripts Cephalexin (CEPHALEXIN) 500 Mg Capsule 1 CAP PO BID, #20 CAP Prov: EWA BEGUM MD 05/08/20 EWA BEGUM MD May 08, 2020 09:32
== END 2020-05-08 09:48 | disposition home or self-care (01) ==
LOC: ER 08:30
DX: N39.0 Urinary tract infection, site not specified (principal); R10.2 Pelvic and perineal pain; R30.0 Dysuria; R20.8 Other disturbances of skin sensation; E03.9 Hypothyroidism, unspecified; Z90.49 Acquired absence of other specified parts of digestive tract; Z98.890 Other specified postprocedural states; Z98.51 Tubal ligation status; Z88.2 Allergy status to sulfonamides
CPT/HCPCS: 81001; 87491; 87591; 96372; 99283; J1885

== ENCOUNTER → 2020-05-23 | Outpatient (CLI) | payer OTHER ==
[2020-05-08 08:40] VITALS: BP 128/76
[~2020-05-23] MED LIST changes: +CEPH500C PO
--- NOTE | 2020-05-27 09:52 | RAD ---
DATE: 05/23/2020 9:13 AM EXAM: MAMMO ANTONI SCREENING BILATERAL HISTORY: Screening COMPARISON: 05/16/2019, 05/02/2018 Bilateral CC and MLO views of the breasts were performed. Bilateral breast tomosynthesis was performed in CC and MLO projections. This study was interpreted with the benefit of Computerized Aided Detection (CAD). FINDINGS: Breast Density: HETERO The breast parenchyma Is heterogeneously dense, which could reduce sensitivity of mammography. Breast parenchyma level C No suspicious masses, microcalcifications or architectural distortion is present to suggest malignancy in either breast. The visualized axillae are unremarkable. IMPRESSION: No mammographic evidence of malignancy. BI-RADS CATEGORY: 1 NEGATIVE RECOMMENDED FOLLOW-UP: 12M 12 MONTH FOLLOW-UP Annual screening mammography is recommended, unless clinically indicated sooner based on symptoms or change in physical exam. PQRS compliance statement: Patient information was entered into a reminder system with a target due date for the next mammogram. Mammography is a sensitive method for finding small breast cancers, but it does not detect them all and is not a substitute for careful clinical examination. A negative mammogram does not negate a clinically suspicious finding and should not result in delay in biopsying a clinically suspicious abnormality. "Our facility is accredited by the [employer] Mammography Program."
== END ==
LOC: MAMMO 06:29
PROVIDERS: ATTEND Physician Assistant Medical
DX: Z12.31 Encounter for screening mammogram for malignant neoplasm of breast (principal); N64.89 Other specified disorders of breast
CPT/HCPCS: 77063; 77067

== ENCOUNTER → 2020-07-16 | Outpatient (CLI) | payer OTHER ==
[2020-07-16 09:44] LABS: BASO # 0.1 x10^3/uL (0.0-0.2); BASO % 1 % (0-3); EOS # 0.1 x10^3/uL (0.0-0.7); EOS % 2 % (0-3); HEMATOCRIT 38.2 % (36.0-47.0); HEMOGLOBIN 12.9 g/dL (12.0-15.5); LYMPH # 1.5 x10^3/uL (1.0-4.8); LYMPH % 28 % (24-48); MEAN CORPUSCULAR HEMOGLOBIN 31 pg (25-35); MEAN CORPUSCULAR HGB CONC 34 g/dL (31-37); MEAN CORPUSCULAR VOLUME 91 fL (79-100); MONO # 0.5 x10^3/uL (0.0-1.1); MONO % 10 % (0-9); NEUT # 3.1 x10^3/uL (1.8-7.7); NEUT % 59 % (31-73); PLATELET COUNT 239 x10^3/uL (140-400); RED BLOOD COUNT 4.18 x10^6/uL (3.50-5.40); RED CELL DISTRIBUTION WIDTH 14.3 % (11.5-14.5); WHITE BLOOD COUNT 5.3 x10^3/uL (4.0-11.0)
[2020-07-16 10:11] LABS: ALBUMIN 3.7 g/dL (3.4-5.0); ALBUMIN/GLOBULIN RATIO 0.8 (1.0-1.7); CALCIUM 8.8 mg/dL (8.5-10.1); CREATININE 0.8 mg/dL (0.6-1.0); GFR 91.1; POTASSIUM 3.6 mmol/L (3.5-5.1); TOTAL BILIRUBIN 0.5 mg/dL (0.2-1.0); TOTAL PROTEIN 8.6 g/dL (6.4-8.2)
[2020-07-16 10:19] LABS: FREE T4 1.14 ng/dL (0.76-1.46); THYROID STIM HORMONE (TSH) 1.601 uIU/mL (0.358-3.74)
[2020-07-16 10:21] LABS: CHOLESTEROL/HDL RATIO 3.7
== END ==
LOC: LAB 09:00
PROVIDERS: ATTEND Physician Assistant Medical
DX: Z13.220 Encounter for screening for lipoid disorders (principal); Z00.00 Encounter for general adult medical examination without abnormal findings; R77.9 Abnormality of plasma protein, unspecified; E04.1 Nontoxic single thyroid nodule
CPT/HCPCS: 36415; 80053; 80061; 84439; 84443; 85025

== ENCOUNTER → 2020-07-26 | Outpatient (CLI) | payer OTHER ==
--- NOTE | 2020-07-26 14:38 | RAD ---
EXAM: Thyroid sonogram. HISTORY: Thyroid nodule. TECHNIQUE: Sonographic imaging of the thyroid was performed. COMPARISON: 12/21/2018. FINDINGS: The right thyroid lobe measures 5.2 x 2.0 x 1.9 cm. The left thyroid lobe measures 4.7 x 2. 0 x 1.4 cm. The thyroid isthmus measures 1.4 mm. Thyroid parenchyma is diffusely heterogeneous. There are multiple small thyroid nodules and cysts. The largest solid lesion on the right is a hypoec hoic nodule with hypoechoic rim within the inferior right thyroid lobe measuring 10 x 9 x 7 mm. The l argest lesion on the left is a complex cyst with internal septation and debris within the inferior lo be measuring 7 x 7 x 6 mm. IMPRESSION: Diffusely heterogeneous thyroid containing multiple nodules and cysts. The largest solid nodule is on the right measuring 10 mm and is stable compared to the study performed 12/21/2018. This is a TI-RADS Category 3 lesion. The remainder of the nodules are subcentimeter in size. Electronically signed by: Cindy Pickett MD (07/26/2020 2:36 PM) [id number]
== END ==
LOC: US 13:51
PROVIDERS: ATTEND Physician Assistant Medical
DX: E04.2 Nontoxic multinodular goiter (principal)
CPT/HCPCS: 76536

== ENCOUNTER 2020-10-07 13:18 | Emergency (ER) | payer OTHER ==
[~2020-10-07] VITALS: Ht 160 cm; Wt 86.3 kg
[2020-10-07 14:00] VITALS: BP 119/78
[2020-10-07 14:06] LABS: CLARITY,URINE CLEAR
[2020-10-07 14:15] LABS: BACTERIA,URINE MANY /HPF (0-FEW)
[2020-10-07 14:16] LABS: RBC,URINE 0 /HPF (0-2)
[2020-10-07 14:19] LABS: COLOR,URINE ORANGE
[2020-10-07] MEDS ORDERED: IV NORMAL SALINE 1000ML BAG 1,000 ML IV ONE (14:30)
--- NOTE | 2020-10-07 15:09 | RAD ---
CT abdomen pelvis without contrast dated 10/07/2020. No comparison available. CLINICAL INDICATION: Dysuria. TECHNIQUE: Contiguous axial imaging of the abdomen pelvis performed without the administration of IV or oral con trast. One or more of the following individualized dose reduction techniques were utilized for this examinat ion: 1. Automated exposure control 2. Adjustment of the mA and/or kV according to patient size 3. Use of iterative reconstruction technique. FINDINGS: Limited images of the lung bases are clear. Heart size is within normal limits. No pleural or pericar dial effusion. Solid abdominal viscera not well evaluated in the absence of contrast material. No apparent attenuati on abnormality of the liver or spleen. Pancreas, adrenal glands and kidneys are unremarkable. No hydr onephrosis. Gallbladder surgically absent. Unopacified GI tract normal in caliber and contour. No bowel wall thickening. No inflammatory strandi ng in the mesentery. The appendix is normal in caliber. No ascites or lymphadenopathy. Abdominal aort a normal in caliber. Images of pelvis show nondistended urinary bladder. Uterus and adnexa are unremarkable. No free fluid or lymphadenopathy. Bone windows show no acute findings. IMPRESSION: 1. No acute abnormality of abdomen or pelvis. No renal stone or hydronephrosis. 2. Normal appendix. Electronically signed by: Dl Larose MD (10/07/2020 3:06 PM) [id number]
[2020-10-07 15:18] LABS: BASO # 0.1 x10^3/uL (0.0-0.2); BASO % 1 % (0-3); EOS # 0.1 x10^3/uL (0.0-0.7); EOS % 2 % (0-3); HEMATOCRIT 37.9 % (36.0-47.0); HEMOGLOBIN 12.8 g/dL (12.0-15.5); LYMPH # 1.2 x10^3/uL (1.0-4.8); LYMPH % 19 % (24-48); MEAN CORPUSCULAR HEMOGLOBIN 31 pg (25-35); MEAN CORPUSCULAR HGB CONC 34 g/dL (31-37); MEAN CORPUSCULAR VOLUME 92 fL (79-100); MONO # 0.5 x10^3/uL (0.0-1.1); MONO % 9 % (0-9); NEUT # 4.2 x10^3/uL (1.8-7.7); NEUT % 69 % (31-73); PLATELET COUNT 220 x10^3/uL (140-400); RED BLOOD COUNT 4.14 x10^6/uL (3.50-5.40); RED CELL DISTRIBUTION WIDTH 14.2 % (11.5-14.5); WHITE BLOOD COUNT 6.1 x10^3/uL (4.0-11.0)
[2020-10-07 15:28] LABS: CREATININE 0.8 mg/dL (0.6-1.0); GFR 90.8; POTASSIUM 3.8 mmol/L (3.5-5.1)
[2020-10-07 15:33] LABS: ALBUMIN 3.6 g/dL (3.4-5.0); ALBUMIN/GLOBULIN RATIO 0.9 (1.0-1.7); TOTAL BILIRUBIN 0.4 mg/dL (0.2-1.0); TOTAL PROTEIN 7.8 g/dL (6.4-8.2)
[2020-10-07] MEDS ORDERED: CEPH500T PO (15:54)
--- NOTE | 2020-10-07 15:54 | PHYS DOC ---
Past Medical History Past Medical History: No Pertinent History, Hypothyroid (TONYRODRIGO JURADO [employer]) Past Surgical History: Cholecystectomy, , Tubal ligation (RODRIGO APARICIO [employer]) Smoking Status: Never Smoker Alcohol Use: None Drug Use: None (MARKUSRODRIGO Aly [employer]) General Adult EDM: Chief Complaint: PAIN ON URINATION HPI: HPI: Patient is a 55 year old female who presents to the ED today complaining of dysuria, symptoms began 3 days ago, she was seen at urgent care on Wednesday and started on Cipro for UTI. She states symptoms are still ongoing. She took Azo this morning. Denies any abdominal pain, nausea, vomiting, fever. (EDUARDORODRIGO Pollack [employer]) Review of Systems: Review of Systems: Constitutional: Denies fever or chills. [] Eyes: Denies change in visual acuity. [] HENT: Denies nasal congestion or sore throat. [] Respiratory: Denies cough or shortness of breath. [] Cardiovascular: Denies chest pain or edema. [] GI: Denies abdominal pain, nausea, vomiting, bloody stools or diarrhea. [] : Reports dysuria Musculoskeletal: Denies back pain or joint pain. [] Integument: Denies rash. [] Neurologic: Denies headache, focal weakness or sensory changes. [] Psychiatric: Denies depression or anxiety. [] (RODRIGO APARICIO [employer]) Heart Score: C/O Chest Pain: N/A Risk Factors: Risk Factors: DM, Current or recent (<one month) smoker, HTN, HLP, family history of CAD, obesity. Risk Scores: Score 0 - 3: 2.5% MACE over next 6 weeks - Discharge Home Score 4 - 6: 20.3% MACE over next 6 weeks - Admit for Clinical Observation Score 7 - 10: 72.7% MACE over next 6 weeks - Early Invasive Strategies (RODRIGO APARICIO [employer]) Current Medications: Current Medications Medications (Trade) Dose Ordered Sig/Manda Start Time Stop Time Status Last Admin Dose Admin Sodium Chloride 1,000 ml @ 1,000 mls/hr 1X ONCE 10/07/20 14:30 10/07/20 15:29 DC 10/07/20 15:00 1,000 MLS/HR (RODRIGO APARICIO [employer]) Allergies: Allergies: Allergies Coded Allergies Type Severity Reaction Last Updated Verified Sulfa (Sulfonamide Antibiotics) Allergy Intermediate RASH 09/29/17 Yes (RODRIGO APARICIO [employer]) Physical Exam: PE: Constitutional: Well developed, well nourished, no acute distress, non-toxic appearance. [] HENT: Normocephalic, atraumatic, bilateral external ears normal, oropharynx moist, no oral exudates, nose normal. [] Eyes: PERRLA, EOMI, conjunctiva normal, no discharge. [] Neck: Normal range of motion, no tenderness, supple, no stridor. [] Cardiovascular:Heart rate regular rhythm, no murmur [] Lungs & Thorax: Bilateral breath sounds clear to auscultation [] Abdomen: Bowel sounds normal, soft, no tenderness, no masses, no pulsatile masses. [] Skin: Warm, dry, no erythema, no rash. [] Back: No tenderness, no CVA tenderness. [] Extremities: No tenderness, no cyanosis, no clubbing, ROM intact, no edema. [] Neurologic: Alert and oriented X 3, normal motor function, normal sensory function, no focal deficits noted. [] Psychologic: Affect normal, judgement normal, mood normal. [] (RODRIGO APARICIO [employer]) Current Patient Data: Labs: Laboratory Tests Test 10/07/20 13:58 10/07/20 14:55 Urine Collection Type Unknown Urine Color [place] Urine Clarity Clear Urine pH (<5.0-8.0) Urine Specific [place] (1.000-1.030) Urine Protein mg/dL (NEG-TRACE) Urine Glucose (UA) mg/dL (NEG) Urine Ketones (Stick) mg/dL (NEG) Urine Blood (NEG) Urine Nitrite (NEG) Urine Bilirubin (NEG) Urine Urobilinogen Dipstick mg/dL (0.2 mg/dL) Urine Leukocyte Esterase (NEG) Urine RBC 0 /HPF (0-2) Urine WBC 1-4 /HPF (0-4) Urine Squamous Epithelial Cells Many /LPF Urine Bacteria Many /HPF (0-FEW) White Blood Count 6.1 x10^3/uL (4.0-11.0) Red Blood Count 4.14 x10^6/uL (3.50-5.40) Hemoglobin 12.8 g/dL (12.0-15.5) Hematocrit 37.9 % (36.0-47.0) Mean Corpuscular Volume 92 fL (79-100) Mean Corpuscular Hemoglobin 31 pg (25-35) Mean Corpuscular Hemoglobin Concent 34 g/dL (31-37) Red Cell Distribution Width 14.2 % (11.5-14.5) Platelet Count 220 x10^3/uL (140-400) Neutrophils (%) (Auto) 69 % (31-73) Lymphocytes (%) (Auto) 19 % (24-48) L Monocytes (%) (Auto) 9 % (0-9) Eosinophils (%) (Auto) 2 % (0-3) Basophils (%) (Auto) 1 % (0-3) Neutrophils # (Auto) 4.2 x10^3/uL (1.8-7.7) Lymphocytes # (Auto) 1.2 x10^3/uL (1.0-4.8) Monocytes # (Auto) 0.5 x10^3/uL (0.0-1.1) Eosinophils # (Auto) 0.1 x10^3/uL (0.0-0.7) Basophils # (Auto) 0.1 x10^3/uL (0.0-0.2) Sodium Level 140 mmol/L (136-145) Potassium Level 3.8 mmol/L (3.5-5.1) Chloride Level 105 mmol/L (98-107) Carbon Dioxide Level 30 mmol/L (21-32) Anion Gap 5 (6-14) L Blood Urea Nitrogen 9 mg/dL (7-20) Creatinine 0.8 mg/dL (0.6-1.0) Estimated GFR (Cockcroft-Gault) 90.8 BUN/Creatinine Ratio 11 (6-20) Glucose Level 82 mg/dL (70-99) Calcium Level 9.0 mg/dL (8.5-10.1) Total Bilirubin 0.4 mg/dL (0.2-1.0) Aspartate Amino Transferase (AST) 18 U/L (15-37) Alanine Aminotransferase (ALT) 15 U/L (14-59) Alkaline Phosphatase 97 U/L (46-116) Total Protein 7.8 g/dL (6.4-8.2) Albumin 3.6 g/dL (3.4-5.0) Albumin/Globulin Ratio 0.9 (1.0-1.7) L Laboratory Tests 10/07/20 14:55 Laboratory Tests 10/07/20 14:55 Vital Signs: Vital Signs Date Time Temp Pulse Resp B/P (MAP) Pulse Ox O2 Delivery O2 Flow Rate FiO2 10/07/20 14:00 98.3 80 18 119/78 (92) 100 Room Air 98.3 (RODRIGO APARICIO APRN) EKG: EKG: [] (RODRIGO APARICIO APRN) Radiology/Procedures: Radiology/Procedures: [] (RODRIGO APARICIO APRN) Course & Med Decision Making: Course & Med Decision Making Pertinent Labs and Imaging studies reviewed. (See chart for details) This is a 55-year-old female patient presenting to the ED today complaining of dysuria for 3 days. Was started on Cipro on Wednesday with no relief to her symptoms. CBC CMP with no acute findings, CT of the abdomen and pelvic is negative for any acute findings. UA unable to be read due to urine color. Patient took Azo. We will switch her from Cipro to cephalexin. Encouraged to push fluids and follow-up with the primary care doctor (RODRIGO APARICIO APRN) Course & Med Decision Making I oversaw on the above date of service of this patient. This patient was evaluated, examined, treated, and dispositioned from the emergency department by the mid-level practitioner. Although I was working at the time and available for consultation, no assistance was requested and I did not see or immediately direct the care of this patient. I reviewed note and agree to findings, plan of care, and disposition as stated. Electronically signed, Adolph Nobles DO (ADOLPH NOBLES DO) Pancho Disclaimer: Pancho Disclaimer: This electronic medical record was generated, in whole or in part, using a voice recognition dictation system. (RODRIGO APARICIO APRN) Departure Departure Impression: Primary Impression: Dysuria Disposition: HOME / SELF CARE / HOMELESS Condition: STABLE Referrals: TEODORA JIMENEZ PA-C (PCP) follow up with your doctor next week Patient Instructions: Urinary Tract Infection Additional Instructions: You were evaluated in the emergency room, your CT of the abdomen and pelvic is negative for any acute findings, your lab work is negative for any acute findings, unfortunately your urine could not be read by the lab machine because of its color. We will switch you from Cipro to cephalexin. Ensure you complete it. Continue taking Azo. You can also take Tylenol or Motrin for pain. Follow-up with your doctor next week Scripts Cephalexin (CEPHALEXIN) 500 Mg Tablet 1 TAB PO BID, #14 TAB Prov: RODRIGO APARICIO APRN 10/07/20 RODRIGO APARICIO APRN Oct 07, 2020 15:54 ADOLPH NOBLES DO Oct 08, 2020 05:54
== END 2020-10-07 16:21 | disposition home or self-care (01) ==
LOC: ER 13:18
DX: R30.0 Dysuria (principal); E03.9 Hypothyroidism, unspecified; Z90.49 Acquired absence of other specified parts of digestive tract; Z88.2 Allergy status to sulfonamides
CPT/HCPCS: 36415; 74176; 80053; 81001; 85025; 87086; 96360; 99284; J7030

== ENCOUNTER → 2020-12-17 | Outpatient (CLI) | payer OTHER ==
[~2020-12-17] MED LIST changes: +CEPH500T PO
--- NOTE | 2020-12-17 09:14 | RAD ---
EXAM: Neck sonogram. HISTORY: Lymphadenopathy. TECHNIQUE: Sonographic imaging of the right mandible at the site of palpable concern was performed. COMPARISON: None. FINDINGS: There is a 7 x 5 x 3 mm solid hypoechoic nodule within the right mandibular soft tissues at the site of palpable concern. There is an adjacent vessel. The imaging appearance favors a lymph nod e with thickened cortex. IMPRESSION: 7 mm suspected lymph node with thickened cortex within the right mandibular soft tissues at the site of palpable concern. This may be reactive in etiology. Continued clinical follow-up of pa lpable abnormalities is recommended. Follow up with a sonogram or cross-sectional imaging can be perf ormed if there is continuing concern. Electronically signed by: Cindy Pickett MD (12/17/2020 9:12 AM) [id number]
== END ==
LOC: US 09:21
PROVIDERS: ATTEND Registered Nurse
DX: R59.0 Localized enlarged lymph nodes (principal)
CPT/HCPCS: 76536

== ENCOUNTER 2021-03-01 11:39 | Emergency (ER) | payer OTHER ==
[~2021-03-01] VITALS: Ht 167.6 cm; Wt 82.0 kg
--- NOTE | 2021-03-01 12:54 | PHYS DOC ---
Past Medical History Past Medical History: No Pertinent History, Hypothyroid (IRINA DUARTE) Past Surgical History: Cholecystectomy, (IRINA DUARTE) Smoking Status: Never Smoker Alcohol Use: None Drug Use: None (IRINA DUARTE) General Adult EDM: Chief Complaint: MECHANICAL FALL HPI: HPI: Patient is a 55 year old female who presents with left ankle pain. Patient reports she was walking into a breakfast restaurant wearing low heeled boots, when her ankle rolled inward. She reports her pain 4/10 nonradiating and worse with walking. She was able to ambulate painfully after the injury. Patient denies prior injury. She denies paresthesias, radiation of pain and weakness. (IRINA DUARTE) Review of Systems: Review of Systems: ROS negative except as mentioned in HPI. (IRINA DUARTE) Heart Score: C/O Chest Pain: No (IRINA DUARTE) Allergies: Allergies: Allergies Coded Allergies Type Severity Reaction Last Updated Verified Sulfa (Sulfonamide Antibiotics) Allergy Intermediate RASH 09/29/17 Yes (IRINA DUARTE) Physical Exam: PE: Constitutional: Well developed, well nourished, no acute distress, non-toxic appearance. Cardiovascular: Heart rate regular rhythm, no murmur. Lungs & Thorax: Bilateral breath sounds clear to auscultation. Skin: Warm, dry, no erythema, no rash no abrasion, no laceration. Extremities: Left ankle with lateral malleolar swelling and point tenderness, passive range of motion intact, active range of motion intact with pain. Extremities otherwise no tenderness, no cyanosis, no clubbing, ROM intact, no edema. Neurovascular intact in extremities x4. Neurologic: Alert and oriented x4, motor function grossly intact, sensory function grossly intact, no focal deficits noted. (IRINA DUARTE) Current Patient Data: Vital Signs: Vital Signs Date Time Temp Pulse Resp B/P (MAP) Pulse Ox O2 Delivery O2 Flow Rate FiO2 03/01/21 11:45 98.4 93 16 127/83 (98) 100 Room Air 98.4 (IRINA DUARTE) Radiology/Procedures: Radiology/Procedures: PROCEDURE: ANKLE LEFT 3V XR EXAM OF ANKLE_LEFT 3V 03/01/2021 12:49 PM INDICATION: Ankle injury, locking COMPARISON: None available. TECHNIQUE: 3 views of the left ankle are provided. FINDINGS/ IMPRESSION: There is a transversely arch fracture involving the lateral malleolus with intra-articular extension to the tibiotalar joint. Tibial plafond and talar dome are intact. Lateral soft tissue swelling is noted. Posterior and plantar calcaneal enthesophytes are present. No radiopaque foreign density or subcutaneous gas. Electronically signed by: Alfreda Loo MD (03/01/2021 1:07 PM) [id number] (IRINA DUARTE) Course & Med Decision Making: Course & Med Decision Making Pertinent Labs and Imaging studies reviewed. (See chart for details) Due to difficulty ambulating in the emergency department combined with lateral malleolar bony tenderness, x-ray images obtained to evaluate for fracture. Patient does not have any tenderness or swelling proximally. X-ray films positive for distal fibular fracture. Patient will be placed in walking boot and provided with crutches. Patient is comfortable using [id number] NSAIDs alternating with acetaminophen every 4 hours for pain control. Patient is advised to be nonweightbearing as much as possible. She will be provided with a work note, as her job requires frequent ambulation. She will need to be cleared by podiatry/Ortho before returning to work. Patient understands and is agreeable to discharge plan. (IRINA DUARTE) Dragon Disclaimer: Dragon Disclaimer: This electronic medical record was generated, in whole or in part, using a voice recognition dictation system. (IRINA DUARTE) Departure Departure Impression: Primary Impression: Nondisplaced fracture of distal end of left fibula Disposition: 01 HOME / SELF CARE / HOMELESS Condition: STABLE Referrals: TEODORA JIMENEZ PA-C (PCP) STALIN GUPTA DPM Patient Instructions: Fibular Fracture, Ankle, Adult, Undisplaced, Treated with Immobilization, RICE - Routine Care for Injuries, [id number] Scripts Crutch (CRUTCH) 1 Each Each PAIR MC UD, #1 DISPENSE: 1 PAIR OF CRUTCHES. PATIENT TO USE INSTRUCTED BY PROVIDER. Prov: IRINA DUARTE 03/01/21 Attending Signature Attending Signature I have reviewed the PA/KEY HOLDER's note and plan of care. I was available for consultation as needed during the patient's visit in the emergency department. I agree with the clinical impression, plan, and disposition. (UZMA FREY DO) IRINA DUARTE Mar 01, 2021 12:54 UZMA FREY DO Mar 02, 2021 06:58
[2021-03-01] MEDS ORDERED: KETOROLAC 60 MG/2 ML VIAL. IM ONE (13:00)
--- NOTE | 2021-03-01 13:10 | RAD ---
XR EXAM OF ANKLE_LEFT 3V 03/01/2021 12:49 PM INDICATION: Ankle injury, locking COMPARISON: None available. TECHNIQUE: 3 views of the left ankle are provided. FINDINGS/ IMPRESSION: There is a transversely arch fracture involving the lateral malleolus with intra-articular extension to the tibiotalar joint. Tibial plafond and talar dome are intact. Lateral soft tissue swelling is no stephanie. Posterior and plantar calcaneal enthesophytes are present. No radiopaque foreign density or subc utaneous gas. Electronically signed by: Alfreda Loo MD (03/01/2021 1:07 PM) [id number]
[2021-03-01] MEDS ORDERED: CRUT1EAC3 MC (13:14)
[2021-03-01 14:27] VITALS: BP 132/75
== END 2021-03-01 14:33 | disposition home or self-care (01) ==
LOC: ER 11:39
DX: S82.402A Unspecified fracture of shaft of left fibula, initial encounter for closed fracture (principal); E03.9 Hypothyroidism, unspecified; Z88.2 Allergy status to sulfonamides; X50.9XXA Other and unspecified overexertion or strenuous movements or postures, initial encounter; Y93.01 Activity, walking, marching and hiking; Y92.511 Restaurant or cafe as the place of occurrence of the external cause; Y99.8 Other external cause status
CPT/HCPCS: 73610; 96372; 99283; J1885

== ENCOUNTER → 2021-06-04 | Outpatient (CLI) | payer OTHER ==
[~2021-06-04] MED LIST changes: +CRUT1EAC3 MC
--- NOTE | 2021-06-04 17:25 | RAD ---
US HEAD/NECK SOFT TISSUE History: Bilateral jaw masses. Comparison: Neck ultrasound 12/17/2020 Technique: Multiple grayscale and color Doppler images of the neck were obtained. Findings: In the area of palpable concern at the right jaw there is a ovoid circumscribed hypoechoic nodule sanford suring 0.6 x 0.5 x 0.3 cm. Simple appearing ovoid circumscribed hypoechoic nodule in the area of poss ible concern in the left jaw/lower cheek measuring 2.8 x 0.4 x 0.5 cm. No color Doppler blood flow is identified in either lesion. Prior ultrasound from December 2020 demonstrates similar appearance of the right-sided palpable nodule without interval enlargement. IMPRESSION: 1. Ovoid hypoechoic masses corresponding to palpable concern in the right and left jaw region which are favored to represent lymph nodes. Delayed this These are not abnormal by size criteria however th e cortex appears somewhat thickened and there is no definite fatty hilum. Stability is size is reassu ring. Continued clinical follow-up is recommended. If there is persistent concern, consider evaluatio n with MRI or CT of the neck to evaluate for adenopathy. Electronically signed by: Cosmo Dodge MD (06/04/2021 5:23 PM) [id number]
--- NOTE | 2021-06-04 17:31 | RAD ---
US THYROID History: Thyroid nodule follow-up Comparison: Thyroid ultrasound 07/26/2020, 12/21/2018 Technique: Multiple grayscale and color Doppler images of the thyroid gland were obtained. Findings: Right thyroid lobe: 5.1 x 2.0 x 1.9 cm. Left thyroid lobe: 4.7 x 1.6 x 2.0 cm. Isthmus: 0.3 cm. The thyroid gland is heterogeneous in echotexture without hyperemia. Redemonstrated are multiple mult iple benign colloid cysts. Heterogeneous nodule in the inferior right thyroid is redemonstrated which is suspected but not definitively a colloid cyst. Nodule #1. Size: 1.0 x 1.0 x 0.6 cm, not significantly changed in size from 2019 Location: Right lower. Characteristics: Solid and cystic, hyperechoic, circumscribed, wider than tall, no echogenic foci ACR TI-RADS risk category: TR2 (2 points): No fine-needle aspiration or follow-up required. IMPRESSION: 1. Heterogeneous thyroid with multiple colloid cysts and a right lower pole 1.0 cm nodule which is n ot suspicious by ACR criteria and demonstrates no significant change from 04/24/2018. No follow-up is required. ACR Thyroid Imaging, Reporting And Data System (TI-RADS): White Paper Of The ACR TI-RADS Committee. J ournal of the [place] [employer], volume 14, issue 5, pages 587-595 (August 2016). Electronically signed by: Cosmo Dodge MD (06/04/2021 5:29 PM) [id number]
== END ==
LOC: US 13:10
PROVIDERS: ATTEND Otolaryngology
DX: E04.2 Nontoxic multinodular goiter (principal); R59.0 Localized enlarged lymph nodes
CPT/HCPCS: 76536

== ENCOUNTER → 2021-06-23 | Outpatient (CLI) | payer OTHER ==
--- NOTE | 2021-06-23 11:53 | RAD ---
Bilateral digital screening 2-D and 3-D (digital breast tomosynthesis) mammogram: Reason for examination: Routine screening. Comparison: Mammograms from 05/23/2020, 05/16/2019, 05/02/2018. Interpretation was made with the benefit of CAD. FINDINGS: Breast density: Category B. There are scattered areas of fibroglandular density. No suspicious breast mass, malignant appearing calcifications, or architectural distortion is seen. IMPRESSION: No evidence of malignancy. Assessment: BI-RADS 1. Negative. Recommendation: Routine screening mammograms. The patient will receive a letter with the results in the mail. Patient information will be entered i nto the mammography reminder system with a target recall date for the next mammogram. A reminder alexander er will be generated. Electronically signed by: Gardenia Tavares MD (06/23/2021 11:51 AM) [id number]
== END ==
LOC: MAMMO 10:01
PROVIDERS: ATTEND Physician Assistant Medical
DX: Z12.31 Encounter for screening mammogram for malignant neoplasm of breast (principal)
CPT/HCPCS: 77063; 77067

== ENCOUNTER → 2021-08-05 | Outpatient (CLI) | payer OTHER ==
[2021-08-07 09:00] LABS: RED BLOOD COUNT 4.33 x10^6/uL (3.50-5.40); WHITE BLOOD COUNT 4.6 x10^3/uL (4.0-11.0)
[2021-08-07 09:01] LABS: BASO % 1 % (0-3); EOS # 0.1 x10^3/uL (0.0-0.7); EOS % 2 % (0-3); HEMATOCRIT 39.6 % (36.0-47.0); HEMOGLOBIN 13.3 g/dL (12.0-15.5); LYMPH % 21 % (24-48); MEAN CORPUSCULAR HEMOGLOBIN 31 pg (25-35); MEAN CORPUSCULAR HGB CONC 34 g/dL (31-37); MEAN CORPUSCULAR VOLUME 92 fL (79-100); MONO # 0.4 x10^3/uL (0.0-1.1); MONO % 9 % (0-9); NEUT # 3.1 x10^3/uL (1.8-7.7); NEUT % 67 % (31-73); PLATELET COUNT 222 x10^3/uL (140-400); RED CELL DISTRIBUTION WIDTH 14.6 % (11.5-14.5)
[2021-08-07 09:07] LABS: ALBUMIN 3.6 g/dL (3.4-5.0); ALBUMIN/GLOBULIN RATIO 0.8 (1.0-1.7); CALCIUM 9.1 mg/dL (8.5-10.1); FREE T4 0.99 ng/dL (0.76-1.46); THYROID STIM HORMONE (TSH) 2.251 uIU/mL (0.358-3.74); TOTAL PROTEIN 8.1 g/dL (6.4-8.2)
[2021-08-07 09:08] LABS: CREATININE 0.8 mg/dL (0.6-1.0); GFR 90.8; POTASSIUM 4.1 mmol/L (3.5-5.1); TOTAL BILIRUBIN 0.4 mg/dL (0.2-1.0)
[2021-08-07 09:09] LABS: CHOLESTEROL/HDL RATIO 4.1
== END ==
LOC: LAB 07:36
PROVIDERS: ATTEND Physician Assistant Medical
DX: Z00.00 Encounter for general adult medical examination without abnormal findings (principal); Z13.220 Encounter for screening for lipoid disorders; R77.9 Abnormality of plasma protein, unspecified; E04.1 Nontoxic single thyroid nodule
CPT/HCPCS: 36415; 80053; 80061; 84439; 84443; 85025